=== PATIENT | male | born 1980 | race Caucasian/White ===

== ENCOUNTER 2016-08-15 18:46 | Emergency (ER) | payer MEDICAID ==
[~2016-08-15] VITALS: Ht 172.7 cm; Wt 67.1 kg
[~2016-08-15 18:46] MED LIST: ALPRAZOLAM1 MG ORAL; BACTRIM DS TAB1 EAC1 ORAL; BACTRIM-DS1 EA ORAL; COLACE100 MG ORAL; FLOMAX0.4 MG ORAL; IBUPROFEN600 MG ORAL; IBUPROFEN800 MG ORAL; KEFLEX500 MG ORAL; KEPPRA500 MG ORAL; METHADONE HCL10 MG PO; MIRALAX17 G2 ORAL
[2016-08-15 19:09] VITALS: BP 108/78
[2016-08-15] MEDS ORDERED: ATIVAN2 MG ORAL (19:35)
[2016-08-15] MEDS ORDERED: AUGMENTIN 875-1 EAC1 ORAL (19:35)
[2016-08-15] MEDS ORDERED: KEPPRA500 MG ORAL (19:36)
[2016-08-15 19:43] VITALS: BP 108/78
--- NOTE | 2016-08-15 22:13 | Emergency Room Report ---
History of Present Illness General Chief Complaint: Toothache Source: Patient Present Illness HPI This is a 35-year-old male who has multiple complaints. Patient states he has left-sided tooth pain that began 3 days ago. Patient states that he has infected tooth and that he has a dental appointment scheduled in the next 1 week and needs antibiotics prior to his appointment. Additionally, the patient states that he is in need of a refill for his Keppra 500 mg 1 tab PO twice a day. States that he was just received a new primary care provider and has an upcoming appointment in the next one month and needs refills on his Keppra for epilepsy until he can make it to his next appointment. Patient also states that he needs a refill of his Xanax 2 mg one tab by mouth each bedtime for his epilepsy and anxiety. States that he thinks his medications but good compliance without adverse effects and with good control of his symptoms. Patient denies any SI, HI, VH, AH. Allergies: Coded Allergies: No Known Allergies (Unverified , 03/14/13) Patient History Past Medical History: see triage record Pertinent Family History: none Immunizations: UTD Reviewed Nursing Documentation: PMH: Agreed, PSxH: Agreed Nursing Documentation-PMH Past Medical History: No Stated History Hx Cardiac Problems: No Hx Cancer: No Hx Gastrointestinal Problems: No Hx Neurological Problems: Yes - New onset Seizure Hx Seizures: Yes Review of Systems All Other Systems: negative except mentioned in HPI Physical Exam Vital Signs Date Time Temp Pulse Resp B/P Pulse Ox O2 Delivery O2 Flow Rate FiO2 08/15/16 18:52 98.1 86 18 108/78 98 Room Air Sp02 EP Interpretation: reviewed, normal General Appearance: no apparent distress, alert, GCS 15, non-toxic Head: normocephalic, atraumatic Eyes: bilateral eye PERRL, bilateral eye normal inspection ENT: hearing grossly normal, normal pharynx, no angioedema, normal voice, other - Left lower molar dental caries present with local tenderness to percussion and w/o drainage Neck: full range of motion, supple/symm/no masses Respiratory: chest non-tender, lungs clear, normal breath sounds, speaking full sentences Cardiovascular #1: regular rate, rhythm, no edema Neurologic: alert, oriented x3, responsive, motor strength/tone normal, sensory intact, speech normal Psychiatric: judgement/insight normal, memory normal, mood/affect normal, no suicidal/homicidal ideation, anxious Skin: normal color, no rash, warm/dry, well hydrated Lymphatic: no adenopathy Medical Decision Making PA Attestation is my supervising physician with whom patient management has been discussed with. Diagnostic Impression: Primary Impression: Dental caries Additional Impressions: Epilepsy Qualified Codes: G40.309 - Generalized idiopathic epilepsy and epileptic syndromes, not intractable, without status epilepticus Anxiety ER Course Pt. presents to the ED c/o dental pain Ddx considered but are not limited to dental caries, trauma, dental abscess, perioral abscess Vital signs: are WNL, pt. is afebrile H&PE are most consistent with dental caries ORDERS: none required at this time, the diagnosis is clinical ED INTERVENTIONS: none required at this time. DISCHARGE: At this time pt. is stable for d/c to home. Will provide printed patient care instructions, and any necessary prescriptions. Care plan and follow up instructions have been discussed with the patient prior to discharge. Last Vital Signs Date Time Temp Pulse Resp B/P Pulse Ox O2 Delivery O2 Flow Rate FiO2 08/15/16 19:43 98.1 85 18 108/78 98 Room Air Disposition: HOME, SELF-CARE Condition: Improved Scripts Levetiracetam (Keppra) 500 Mg Tab 500 MG ORAL BID, #60 TAB 0 Refills Prov: MATTEOTAMEEM P.A. 08/15/16 Amoxicillin/Potassium Clav 875-125* (AUGMENTIN 875-125 TABLET*) 1 Each Tablet 1 TAB ORAL TWICE A DAY for 10 Days, #20 TAB Prov: SABRY,TAMEEM P.A. 08/15/16 Lorazepam* (ATIVAN*) 2 Mg Tablet 2 MG ORAL BEDTIME for 7 Days, TAB Prov: SABRY,TAMEEM P.A. 08/15/16 Referrals: DEREK BATRES,REFERRING (PCP) [place] [email or web address] Aug 15, 2016 22:13
[2016-08-15] MEDS ORDERED: XANAX2 MG ORAL (22:48)
== END 2016-08-15 19:43 | disposition home or self-care (01) ==
LOC: EMR 19:13
DX: K02.9 Dental caries, unspecified (principal); G40.909 Epilepsy, unspecified, not intractable, without status epilepticus; Z79.899 Other long term (current) drug therapy
CPT/HCPCS: 99284

== ENCOUNTER 2016-08-28 19:33 | Emergency (ER) | payer MEDICAID ==
[~2016-08-28] VITALS: Ht 172.7 cm; Wt 72.6 kg
[~2016-08-28 19:33] MED LIST changes: +ATIVAN2 MG ORAL; +AUGMENTIN 875-1 EAC1 ORAL; +XANAX2 MG ORAL
[2016-08-28 19:46] VITALS: BP 115/64
[2016-08-28] MEDS ORDERED: BUSPAR10 MG ORAL (20:01)
[2016-08-28] MEDS ORDERED: PROZAC20 MG ORAL (20:01)
[2016-08-28 20:09] VITALS: BP 115/64
--- NOTE | 2016-08-30 13:33 | Emergency Room Report ---
History of Present Illness General Chief Complaint: Medication Refill Source: Patient Present Illness HPI Patient is a 35-year-old male presented for medication refill. The patient had previously been prescribed Xanax 2 mg at [facility] approximately 2 weeks ago. The patient stated that he had run out of his medication and wanted a refill. Patient stated that he had prior history of anxiety and had been taking Xanax. He states he had not been taking the medication for several years previously. Patient was noted to have the prior history of seizure disorder. He states that he had adequate amounts of his seizure medication. He denied any fever. He denied any shortness of breath. The patient said he felt otherwise fine. Allergies: Coded Allergies: No Known Allergies (Unverified , 03/14/13) Patient History Past Medical History: see triage record Reviewed Nursing Documentation: PMH: Agreed, PSxH: Agreed Nursing Documentation-PMH Hx Cardiac Problems: No Hx Cancer: No Hx Gastrointestinal Problems: No History Of Psychiatric Problem: Yes - ANXIETY,PANIC ATTACK Hx Neurological Problems: Yes - New onset Seizure Hx Seizures: Yes Review of Systems All Other Systems: negative except mentioned in HPI Physical Exam Vital Signs Date Time Temp Pulse Resp B/P Pulse Ox O2 Delivery O2 Flow Rate FiO2 08/28/16 19:37 98.2 96 16 115/64 96 Room Air General Appearance: well appearing, no apparent distress, alert, GCS 15 Head: normocephalic, atraumatic ENT: hearing grossly normal, normal voice Neck: full range of motion, supple Respiratory: no respiratory distress, speaking full sentences Cardiovascular #1: normal inspection, normal peripheral pulses, regular rate, rhythm Gastrointestinal: normal inspection Musculoskeletal: no calf tenderness Neurologic: normal inspection, alert, oriented x3, responsive, normal gait Psychiatric: normal inspection, mood/affect normal Skin: no rash Medical Decision Making Diagnostic Impression: Primary Impression: Anxiety ER Course Patient presented for medication refill. The differential diagnosis included was not limited to anxiety, drug-seeking behavior, amphetamine abuse, caffeine overdose, among others. The patient appeared to have a normal psychiatric exam. He denied appear to be anxious or responding to internal stimuli. The patient denied suicidal thoughts. Patient does not appear to require psychiatric testing at this time. The patient stated that he wanted Xanax 2 mg. The patient was advised that I would not prescribe this medication as he should followup with his primary care physician or psychiatrist if he needed refill of scheduled medications. The patient was subsequently combative and abusive. The patient was given a prescription for BuSpar for anxiety. He was advised followup a previously scheduled appointment for a psychiatrist. He was given referral for outpatient mental health. Last Vital Signs Date Time Temp Pulse Resp B/P Pulse Ox O2 Delivery O2 Flow Rate FiO2 08/28/16 20:09 98.2 93 16 115/64 96 Room Air Status: improved Disposition: HOME, SELF-CARE Condition: Stable Scripts Buspirone Hcl* (BUSPAR*) 10 Mg Tablet 10 MG ORAL THREE TIMES A DAY, #15 TAB 0 Refills Prov: Carlos Ospina 08/28/16 Referrals: [facility],REFERRING Patient Instructions: Generalized Anxiety Disorder Carlos Ospina Aug 30, 2016 13:33
== END 2016-08-28 20:09 | disposition home or self-care (01) ==
LOC: EMR 20:00
DX: F41.9 Anxiety disorder, unspecified (principal); Z76.0 Encounter for issue of repeat prescription
CPT/HCPCS: 99283

== ENCOUNTER 2017-10-03 16:12 | Emergency (ER) | payer MEDICAID ==
[~2017-10-03] VITALS: Ht 172.7 cm; Wt 81.6 kg
[~2017-10-03 16:12] MED LIST changes: +BUSPAR10 MG ORAL; +PROZAC20 MG ORAL
[2017-10-03 16:32] VITALS: BP 112/69
--- NOTE | 2017-10-03 17:05 | Emergency Room Report ---
History of Present Illness General Chief Complaint: Medication Refill Source: Patient Present Illness HPI Patient presents with complaints of feeling anxious he reports that he has been trying to get outpatient follow-up Has an appointment coming up in the next one month with a primary clinic Today he had a panic attack is what he reports Reporting that he feels a palpitation sensation he did start to improve Denies any chest pain or shortness of breath denies any back or flank pain Patient also reports being out of his Keppra medication Denies any recent seizures Allergies: Coded Allergies: No Known Allergies (Unverified , 03/14/13) Patient History Past Medical History: see triage record Pertinent Family History: none Reviewed Nursing Documentation: PMH: Agreed; PSxH: Agreed Nursing Documentation-PMH Past Medical History: No History, Except For Hx Cardiac Problems: No Hx Cancer: No Hx Gastrointestinal Problems: No Hx Neurological Problems: Yes - seizure Hx Seizures: Yes Review of Systems All Other Systems: negative except mentioned in HPI Physical Exam Vital Signs Date Time Temp Pulse Resp B/P (MAP) Pulse Ox O2 Delivery O2 Flow Rate FiO2 10/03/17 16:32 98.1 93 16 112/69 94 Room Air 98.1 Sp02 EP Interpretation: reviewed, normal General Appearance: well appearing, no apparent distress Head: normocephalic, atraumatic Eyes: bilateral eye PERRL, bilateral eye EOMI ENT: hearing grossly normal, normal pharynx, TMs + canals normal, uvula midline Neck: full range of motion, supple, no meningismus, no bony tend Respiratory: lungs clear, normal breath sounds, no rhonchi, no respiratory distress, no retraction, no accessory muscle use Cardiovascular #1: normal peripheral pulses, regular rate, rhythm, no edema, no gallop, no JVD, no murmur Gastrointestinal: normal bowel sounds, non tender, soft, no mass, no organomegaly, non-distended, no guarding, no hernia, no pulsatile mass, no rebound Genitourinary: no CVA tenderness Musculoskeletal: normal inspection Neurologic: oriented x3, responsive, projection camera operator III-XII nml as tested, motor strength/ tone normal, sensory intact Psychiatric: mood/affect normal Skin: normal color, no rash, warm/dry, palpation normal Lymphatic: normal inspection, no adenopathy Medical Decision Making Diagnostic Impression: Primary Impression: Palpitations Additional Impression: Seizure ER Course Patient was provided with a medication here Patient attempting appropriate outpatient follow-up Will be provided small dose of medication until he can get set up with primary physician Last Vital Signs Date Time Temp Pulse Resp B/P (MAP) Pulse Ox O2 Delivery O2 Flow Rate FiO2 10/03/17 16:32 98.1 93 16 112/69 94 Room Air 98.1 Status: improved Disposition: HOME, SELF-CARE Condition: Stable Additional Instructions: Patient is provided with the discharge instructions notified to follow up with primary doctor in the next 2-3 days otherwise return to the er with any worsening symptoms. Please note that this report is being documented using Player[employer] technology. This can lead to erroneous entry secondary to incorrect interpretation by the dictating instrument. Wilber Arroyo DO October 03, 2017 17:05
[2017-10-03] MEDS ORDERED: KEPPRA500 M4 ORAL (17:07)
[2017-10-03] MEDS ORDERED: ALPRAZOLAM0.25 MG ORAL (17:07)
[2017-10-03] MEDS ORDERED: ALPRAZolam 0.5mg tab ORAL ONE (17:15)
[2017-10-03 17:20] VITALS: BP 112/69
== END 2017-10-03 17:20 | disposition home or self-care (01) ==
LOC: EMR 16:57
DX: R00.2 Palpitations (principal); Z76.0 Encounter for issue of repeat prescription; G40.909 Epilepsy, unspecified, not intractable, without status epilepticus
CPT/HCPCS: 99283

== ENCOUNTER 2018-05-11 12:00 | Emergency (ER) | payer MEDICAID ==
[~2018-05-11] VITALS: Ht 175.3 cm; Wt 77.1 kg
[~2018-05-11 12:00] MED LIST changes: +ALPRAZOLAM0.25 MG ORAL; +KEPPRA500 M4 ORAL
[2018-05-11 12:10] VITALS: BP 111/76
[2018-05-11] MEDS ORDERED: METHADONE HCL10 MG PO (12:10)
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
[2018-05-11] MEDS ORDERED: Bacitracin Oint UD TOPIC ONE ×3 (12:30→14:15)
[2018-05-11] MEDS ORDERED: Ketorolac 30mg Inj IM ONE (12:30)
[2018-05-11] MEDS ORDERED: Tetanus/Diptheria/Pertussis Vaccine 0.5ml Syr IM ONE (12:30)
--- NOTE | 2018-05-11 12:55 | Diagnostic Imaging Report ---
Indication: Headache Technique: Contiguous 5 mm thick transaxial imaging of the head obtained in a Siemens Sensation [address] scanner. Soft tissue and bone windows generated. Automatic Exposure Control was utilized. Total Dose length Product (DLP): 1435.[address] Dose Index Volume (CTDIvol): 70.38 mGy Comparison: none Findings: The size and configuration of the cortical sulci, basal cisterns, and ventricles are within normal limits for age. There is no mass effect, midline shift, or edema identified. There is no evidence of acute hemorrhage or abnormal intra-axial or extra-axial fluid collections. The bones and soft tissues are unremarkable. There is partial opacification of the maxillary sinus bilaterally. Impression: No mass effect, edema or acute bleed. Sinusitis partially imaged on this study. The CT scanner at [facility] is accredited by the [employer] and the scans are performed using dose optimization techniques as appropriate to a performed exam including Automatic Exposure control.
[2018-05-11] MEDS ORDERED: Lidocaine 1% MPF 10mg/ml 5ml IM ONE (13:45)
[2018-05-11] MEDS ORDERED: BACITRACIN-P28.35 GM TP (14:03)
[2018-05-11] MEDS ORDERED: TYLENOL EXTRA500 MG ORAL (14:03)
[2018-05-11 14:35] VITALS: BP 115/73
== END 2018-05-11 14:36 | disposition home or self-care (01) ==
LOC: EMR 12:29
DX: S09.90XA Unspecified injury of head, initial encounter (principal); Z23 Encounter for immunization; S71.111A Laceration without foreign body, right thigh, initial encounter; Y04.2XXA Assault by strike against or bumped into by another person, initial encounter; Y92.511 Restaurant or cafe as the place of occurrence of the external cause
CPT/HCPCS: 12031; 70450; 90471; 90715; 96372; 99284; J1885; Z7502

== ENCOUNTER 2018-06-11 11:26 | Emergency (ER) | payer MEDICAID ==
[~2018-06-11] VITALS: Ht 175.3 cm; Wt 79.4 kg
[~2018-06-11 11:26] MED LIST changes: +BACITRACIN-P28.35 GM TP; +TYLENOL EXTRA500 MG ORAL
[2018-06-11 11:46] VITALS: BP 113/73
--- NOTE | 2018-06-11 11:46 | NUR ---
ED Nurse Note: pt walked into ED for suture removal, noted small scab [id number] on right lateral thigh w/ mild redness, no drainage at this time, skin intact, noted sutures. Will cont monitor, pt denies pain at this time
--- NOTE | 2018-06-11 12:43 | Emergency Room Report ---
History of Present Illness General Chief Complaint: Wound Recheck/Suture Removal Source: Patient Present Illness HPI 37-year-old male presents to the emergency department for suture removal. Patient sustained a puncture wound to the right lateral thigh 3 weeks ago which had 2 sutures placed. Patient denies erythema, warmth, discharge, tenderness or pain. Patient denies bleeding and states that he is up-to-date with vaccinations. Allergies: Coded Allergies: No Known Allergies (Unverified , 03/14/13) Patient History Past Medical History: see triage record Past Surgical History: none Pertinent Family History: none Immunizations: UTD Reviewed Nursing Documentation: PMH: Agreed; PSxH: Agreed Nursing Documentation-PMH Past Medical History: No Stated History Hx Cardiac Problems: No Hx Cancer: No Hx Gastrointestinal Problems: Yes - constipation Hx Neurological Problems: Yes - seizure Hx Seizures: Yes Review of Systems All Other Systems: negative except mentioned in HPI Physical Exam Vital Signs Date Time Temp Pulse Resp B/P (MAP) Pulse Ox O2 Delivery O2 Flow Rate FiO2 06/11/18 11:38 98.2 85 16 113/73 95 Room Air Sp02 EP Interpretation: reviewed, normal General Appearance: no apparent distress, alert, GCS 15, non-toxic Head: normocephalic, atraumatic Eyes: bilateral eye normal inspection, bilateral eye PERRL ENT: hearing grossly normal, normal voice Neck: full range of motion Respiratory: lungs clear, normal breath sounds, speaking full sentences Cardiovascular #1: regular rate, rhythm Musculoskeletal: back normal, gait/station normal, normal range of motion, non- tender Neurologic: alert, oriented x3, responsive, motor strength/tone normal, sensory intact, speech normal, grossly normal Psychiatric: judgement/insight normal Skin: normal color, no rash, warm/dry, well hydrated, wd healing/no infection noted - 2 sutures , right lateral thigh, thick scab noted. Medical Decision Making PA Attestation Dr. Arroyo is my supervising Physician whom patient management has been discussed with. Diagnostic Impression: Primary Impression: Encounter for removal of sutures ER Course 37-year-old male presents to the emergency department for suture removal. Patient sustained a puncture wound to the right lateral thigh 3 weeks ago which had 2 sutures placed. Patient denies erythema, warmth, discharge, tenderness or pain. Patient denies bleeding and states that he is up-to-date with vaccinations. Ddx considered but are not limited to laceration, tendon injury, cellulitis, dehiscence. Vital signs: are WNL, pt. is afebrile H&PE are most consistent with: healed laceration of the right lateral thigh ORDERS: none required at this time, the diagnosis is clinical ED INTERVENTIONS: - 2 Sutures removed. DISCHARGE: At this time pt. is stable for d/c to home. Will provide printed patient care instructions, and any necessary prescriptions. Care plan and follow up instructions have been discussed with the patient prior to discharge. Last Vital Signs Date Time Temp Pulse Resp B/P (MAP) Pulse Ox O2 Delivery O2 Flow Rate FiO2 06/11/18 11:38 98.2 85 16 113/73 95 Room Air Disposition: HOME, SELF-CARE Condition: Stable Scripts Bacitracin/Polymyxin B Sulfate (BACITRACIN-POLYMYXIN OINTMENT) 28.35 Gm Oint...g. 1 APPLIC TP BID, #28.3 GM Prov: Cuca Lee 06/11/18 Referrals: [facility],REFERRING (PCP) Patient Instructions: Suture Removal, Care After Additional Instructions: Take medications as directed. Follow up with a Primary Care Provider in 3-5 days, even if your symptoms have resolved. --Please review list of primary care clinics, if you do not already have a primary care provider Return sooner to ED if new symptoms occur, or current symptoms become worse. - Please note that this Emergency Department Report was dictated using [email or web address] room technology software, occasionally this can lead to erroneous entry secondary to interpretation by the dictation equipment. Cuca Lee Jun 11, 2018 12:43
[2018-06-11] MEDS ORDERED: BACITRACIN-P28.35 GM TP (12:44)
[2018-06-11] MEDS ORDERED: Bacitracin Oint UD TOPIC ONE (12:45)
[2018-06-11 12:57] VITALS: BP 127/87
--- NOTE | 2018-06-11 12:57 | NUR ---
ED Nurse Note: pt sutures removed by PA and wound care done.
--- NOTE | 2018-06-11 12:58 | NUR ---
ED Nurse Note: pt discharge instruction provided w/ prescription, pt education done via discussion and handout, pt advised to follow up w/ pcp 2-3days, pt verbalized understanding and agrees with plan, pt wrist band removed, pt ambulatory w/ steady gait, vss, all belongings left w/ pt.
== END 2018-06-11 12:58 | disposition home or self-care (01) ==
LOC: EMR 12:12
DX: S71.131D Puncture wound without foreign body, right thigh, subsequent encounter (principal); X58.XXXD Exposure to other specified factors, subsequent encounter; Z48.02 Encounter for removal of sutures
CPT/HCPCS: 99282

== ENCOUNTER 2019-04-05 22:16 | Emergency (ER) | payer MEDICAID ==
[~2019-04-05] VITALS: Ht 172.7 cm; Wt 74.8 kg
[2019-04-05 22:20] VITALS: BP 150/89
--- NOTE | 2019-04-05 22:20 | NUR ---
ED Nurse Note: Pt Brought in by ambulance from home after smoking from a marijuana vape, pt reports anxiety, rapid HR and tingling. VSS except HR 127
[2019-04-05] MEDS ORDERED: LORazepam 1mg tab ORAL ONE ×2 (22:30→23:30)
--- NOTE | 2019-04-05 23:20 | Emergency Room Report ---
History of Present Illness General Chief Complaint: Palpitations Source: Patient Present Illness HPI 38-year-old male presents with palpitations, nausea, sweatiness, after taking a hit of a vape/electronic pen, he states he was doing some THC, he states this never happened before, severity was moderate, constant no chest pain, but he had severe palpitations, patient presents for evaluation, he is very anxious about it. Allergies: Coded Allergies: No Known Allergies (Unverified , 03/14/13) Patient History Past Medical History: see triage record Social History: Reports: smoking, alcohol use, drug use Reviewed Nursing Documentation: PMH: Agreed; PSxH: Agreed Nursing Documentation-PMH Past Medical History: No History, Except For Hx Cardiac Problems: No Hx Cancer: No Hx Gastrointestinal Problems: Yes - constipation Hx Neurological Problems: Yes - seizure Hx Seizures: Yes Review of Systems All Other Systems: negative except mentioned in HPI Physical Exam Vital Signs Date Time Temp Pulse Resp B/P (MAP) Pulse Ox O2 Delivery O2 Flow Rate FiO2 04/05/19 22:17 98.6 152 16 150/89 (109) 98 Room Air Sp02 EP Interpretation: reviewed, normal General Appearance: well appearing, no apparent distress, alert Head: normocephalic, atraumatic Eyes: bilateral eye PERRL, bilateral eye EOMI ENT: uvula midline, moist mucus membranes Neck: supple, thyroid normal, supple/symm/no masses Respiratory: lungs clear, no respiratory distress, no retraction, no accessory muscle use Cardiovascular #1: normal peripheral pulses, no edema, no gallop, no murmur, tachycardia Gastrointestinal: non tender, soft, no guarding, no rebound Musculoskeletal: normal inspection Neurologic: alert, oriented x3 Psychiatric: anxious Skin: no rash, warm/dry Medical Decision Making Diagnostic Impression: Primary Impression: Palpitations ER Course 38-year-old male presents with palpitations after utilizing a vape, counseled patient not to smoke, EKG shows sinus tachycardia, tachycardia slowly improved with Ativan, patient coming down, chest x-ray negative, disposition home with return precautions EKG Diagnostic Results EKG Time: 22:32 EP Interpretation: Sinus tachycardia, rate 115, QTc 442, no acute ST elevations , normal axis Chest X-Ray Diagnostic Results Chest X-Ray Diagnostic Results : Chest X-Ray Ordered: Yes # of Views/Limited/Complete: 1 View Indication: Other - Palpitations EP Interpretation: Yes Interpretation: no consolidation, no effusion, no pneumothorax, no acute cardiopulmonary disease Impression: No acute disease Electronically Signed by: Flynn Jeffries MD Last Vital Signs Date Time Temp Pulse Resp B/P (MAP) Pulse Ox O2 Delivery O2 Flow Rate FiO2 04/05/19 22:20 98.6 127 16 150/89 98 Room Air Disposition: HOME, SELF-CARE Condition: Stable Referrals: [facility]. [facility] Patient Instructions: Palpitations Additional Instructions: The patient was provided with discharge instructions, notified to follow-up with a primary care doctor and or specialist in the next 24-48 hours, and to return to the ED if they have worsening of their symptoms. Please note that this report is being documented using [employer] technology. This can lead to erroneous entry secondary to incorrect interpretation by the dictating instrument. Flynn Jeffries MD Apr 05, 2019 23:20
[2019-04-05 23:25] VITALS: BP 150/89
--- NOTE | 2019-04-05 23:25 | NUR ---
ER DISCHARGE NOTE: Patient is cleared to be discharged per ERMD, pt is aox4, on room air, with stable vital signs. pt was given dc and prescription instructions, pt was able to verbalize understanding, pt id band removed. pt is able to ambulate with steady gait. pt took all belongings.
--- NOTE | 2019-04-06 12:05 | Diagnostic Imaging Report ---
Indication: Cough Technique: One view of the chest Comparison: 08/13/2015 Findings: Lungs and pleural spaces are clear. Heart size is normal. No significant change Impression: No acute process
== END 2019-04-05 23:25 | disposition home or self-care (01) ==
LOC: EDUNIT# 22:16 → EDBD 22:16 → EMR 22:50
DX: R00.2 Palpitations (principal); F17.200 Nicotine dependence, unspecified, uncomplicated; F12.10 Cannabis abuse, uncomplicated
CPT/HCPCS: 71045; 93005; Z7502; 99283

== ENCOUNTER 2019-11-10 07:48 | Emergency (ER) | payer MEDICAID ==
[~2019-11-10] VITALS: Ht 172.7 cm; Wt 81.6 kg
[2019-11-10 08:00] VITALS: BP 121/79
--- NOTE | 2019-11-10 08:03 | NUR ---
ED Nurse Note: Patient was brought in by ambulance from [facility] due to abdominal pain, N/V since last night; reports no recent use of substance abuse. Patient presented lethargic, AAO x4, VSS at this time, skin is warm to touch.
--- NOTE | 2019-11-10 08:04 | Emergency Room Report ---
History of Present Illness General Chief Complaint: Abdominal Pain Source: Patient Present Illness HPI Disclaimer: Please note that this report is being documented using [employer] technology. This can lead to erroneous entry secondary to incorrect interpretation by the dictating instrument. HPI: 39-year-old male history of drug use, on methadone, presented from a methadone clinic for nausea and vomiting. He reports epigastric pain with nausea and vomiting. Denies diarrhea. Denies fever. Patient is a very poor historian on arrival. No urinary complaints. Patient denies any recent drug use, but does state that he uses crack cocaine occasionally. PMH: Drug use PSH: Reviewed Social Hx: Takes methadone, uses crack cocaine, marijuana, alcohol, smokes cigarettes Allergies: Coded Allergies: No Known Allergies (Unverified , 03/14/13) COVID-19 Screening Contact w/high risk pt: No Recent Travel to affected area: No Experienced COVID-19 symptoms?: No COVID-19 Testing performed UI [employer] DEVELOPER: No Patient History Reviewed Nursing Documentation: PMH: Agreed; PSxH: Agreed Nursing Documentation-PMH Past Medical History: No History, Except For Hx Cardiac Problems: No - substance abuse Hx Cancer: No Hx Gastrointestinal Problems: Yes Hx Neurological Problems: Yes - seizure Hx Seizures: Yes Review of Systems All Other Systems: negative except mentioned in HPI Physical Exam Vital Signs Date Time Temp Pulse Resp B/P (MAP) Pulse Ox O2 Delivery O2 Flow Rate FiO2 11/10/19 07:50 97.3 79 14 121/79 (93) 99 Room Air Sp02 EP Interpretation: reviewed, normal General Appearance: well appearing, no apparent distress Head: normocephalic, atraumatic Eyes: bilateral eye PERRL, bilateral eye EOMI ENT: hearing grossly normal, moist mucus membranes Neck: full range of motion, supple Respiratory: lungs clear, normal breath sounds, no rhonchi, no respiratory distress, no retraction, no wheezing Cardiovascular #1: normal peripheral pulses, regular rate, rhythm, no murmur Gastrointestinal: non tender, soft, non-distended, no guarding Neurologic: alert, oriented x3, no focal defects Skin: normal color, warm/dry Medical Decision Making Diagnostic Impression: Primary Impression: Nausea & vomiting Additional Impression: Polysubstance abuse ER Course MDM: Differential included but not limited to gastritis, pancreatitis, substance abuse, gastroenteritis Clinical course-basic laboratory studies were sent.. CT scan ordered, IV fluids and Zofran given. On reassessment patient did appear improved in no acute distress. CT scan did not demonstrate any acute pathology. Laboratory studies Demonstrated mild leukocytosis. Urine drug screen positive for cocaine and marijuana. Labs - Laboratory Tests Test 11/10/19 08:10 11/10/19 12:35 White Blood Count 11.4 K/UL (4.8-10.8) H Red Blood Count 5.34 M/UL (4.70-6.10) Hemoglobin 15.3 G/DL (14.2-18.0) Hematocrit 42.7 % (42.0-52.0) Mean Corpuscular Volume 80 FL (80-99) Mean Corpuscular Hemoglobin 28.7 PG (27.0-31.0) Mean Corpuscular Hemoglobin Concent 35.8 G/DL (32.0-36.0) Red Cell Distribution Width 11.1 % (11.6-14.8) L Platelet Count 317 K/UL (150-450) Mean Platelet Volume 5.9 FL (6.5-10.1) L Neutrophils (%) (Auto) 72.1 % (45.0-75.0) Lymphocytes (%) (Auto) 19.1 % (20.0-45.0) L Monocytes (%) (Auto) 5.3 % (1.0-10.0) Eosinophils (%) (Auto) 2.7 % (0.0-3.0) Basophils (%) (Auto) 0.9 % (0.0-2.0) Sodium Level 142 MMOL/L (136-145) Potassium Level 3.8 MMOL/L (3.5-5.1) Chloride Level 103 MMOL/L (98-107) Carbon Dioxide Level 27 MMOL/L (21-32) Anion Gap 12 mmol/L (5-15) Blood Urea Nitrogen 19 mg/dL (7-18) H Creatinine 1.0 MG/DL (0.55-1.30) Estimated Glomerular Filtration Rate > 60 mL/min (>60) Glucose Level 111 MG/DL (74-106) H Calcium Level 9.9 MG/DL (8.5-10.1) Total Bilirubin 0.7 MG/DL (0.2-1.0) Aspartate Amino Transferase (AST) 31 U/L (15-37) Alanine Aminotransferase (ALT) 41 U/L (12-78) Alkaline Phosphatase 67 U/L (46-116) Total Protein 8.3 G/DL (6.4-8.2) H Albumin 5.0 G/DL (3.4-5.0) Globulin 3.3 g/dL Albumin/Globulin Ratio 1.5 (1.0-2.7) Lipase 194 U/L (73-393) Urine Color Yellow Urine Appearance Clear Urine pH 6 (4.5-8.0) Urine Specific [place] 1.025 (1.005-1.035) Urine Protein 2+ (NEGATIVE) H Urine Glucose (UA) Negative (NEGATIVE) Urine Ketones 4+ (NEGATIVE) H Urine Blood Negative (NEGATIVE) Urine Nitrite Negative (NEGATIVE) Urine Bilirubin Negative (NEGATIVE) Urine Urobilinogen 4 MG/DL (0.0-1.0) H Urine Leukocyte Esterase 1+ (NEGATIVE) H Urine RBC 0 /HPF (0 - 0) Urine WBC 0-2 /HPF (0 - 0) Urine Squamous Epithelial Cells Occasional /LPF Urine Amorphous Sediment Moderate /LPF (NONE) H Urine Bacteria Occasional /HPF (NONE) Urine Mucus Moderate /LPF (NONE/OCC) H Urine Opiates Screen Negative (NEGATIVE) Urine Barbiturates Screen Negative (NEGATIVE) Phencyclidine (PCP) Screen Negative (NEGATIVE) Urine Amphetamines Screen Negative (NEGATIVE) Urine Benzodiazepines Screen Positive (NEGATIVE) H Urine Cocaine Screen Positive (NEGATIVE) H Urine Marijuana (THC) Screen Negative (NEGATIVE) On reevaluation: Patient appears improved, no acute distress, stable vital signs , Plan-discharge home with follow-up PMD, Zofran as needed, and instructions to avoid further crack cocaine use. Last Vital Signs Date Time Temp Pulse Resp B/P (MAP) Pulse Ox O2 Delivery O2 Flow Rate FiO2 11/10/19 07:50 97.3 79 14 121/79 (93) 99 Room Air Disposition: HOME, SELF-CARE Condition: Improved Scripts Ondansetron (Zofran) 4 Mg Tablet 4 MG ORAL Q6H PRN for Nausea & Vomiting, #14 TAB Prov: Yoan Jarrett M.D. 11/10/19 Yoan Jarrett M.D. Nov 10, 2019 08:04
--- NOTE | 2019-11-10 08:15 | NUR ---
ED Nurse Note: IV access established on left wrist 22ga, blood collected sent down
[2019-11-10 08:21] LABS: BASOPHILS % (AUTO) 0.9 % (0.0-2.0); EOSINOPHILS % (AUTO) 2.7 % (0.0-3.0); HEMATOCRIT 42.7 % (42.0-52.0); HEMOGLOBIN 15.3 G/DL (14.2-18.0); LYMPHOCYTES % (AUTO) 19.1 % (20.0-45.0); MEAN CORPUSCULAR VOLUME 80 FL (80-99); MONOCYTES % (AUTO) 5.3 % (1.0-10.0); NEUTROPHILS % (AUTO) 72.1 % (45.0-75.0); PLATELET COUNT 317 K/UL (150-450); RED BLOOD COUNT 5.34 M/UL (4.70-6.10); RED CELL DISTRIBUTION WIDTH 11.1 % (11.6-14.8); WHITE BLOOD COUNT 11.4 K/UL (4.8-10.8)
[2019-11-10 08:38] LABS: ANION GAP 12 mmol/L (5-15); BLOOD UREA NITROGEN 19 mg/dL (7-18); CALCIUM 9.9 MG/DL (8.5-10.1); CARBON DIOXIDE 27 MMOL/L (21-32); CHLORIDE 103 MMOL/L (98-107); POTASSIUM 3.8 MMOL/L (3.5-5.1); SODIUM 142 MMOL/L (136-145)
[2019-11-10 08:44] LABS: ALANINE AMINOTRANSFERASE 41 U/L (12-78); ALBUMIN/GLOBULIN RATIO 1.5 (1.0-2.7); ALKALINE PHOSPHATASE 67 U/L (46-116); ASPARTATE AMINO TRANSFERASE 31 U/L (15-37); BILIRUBIN,TOTAL 0.7 MG/DL (0.2-1.0)
--- NOTE | 2019-11-10 12:02 | Diagnostic Imaging Report ---
EXAM: CT CT Abdomen Pelvis WO Contrast INDICATION: Abdominal pain. Nausea vomiting. COMPARISON: 03/14/2013 TECHNIQUE: Axial images were obtained through the abdomen pelvis without intravenous contrast. Sagittal and coronal reformats are generated. All CT scans at this facility are performed using dose modulation techniques as appropriate to a performed exam including the following: automated exposure control with adjustment of the mA and/or kV according to patient size. RADIATION DOSE: CTDIvol: 3.5 mGy DLP: 185.5 mGy-cm Dose information generated by the CT scanner is available in PACS. FINDINGS: There are several small subpleural nodules noted in the lung bases. In the left lung bases, there are 2 to 3 mm small nodule seen in the lateral left lower lobe on images 18 and 16. Another tiny subpleural nodule posterior right lung base on image 5 approximately 2 mm. The liver and spleen are homogeneous. Gallbladder is without sludge or stone and there is no wall thickening. The pancreas is unremarkable. Adrenals are normal in morphology. Small intrarenal stones noted lower pole right kidney. No hydronephrosis seen bilaterally. Small bowel loops are nondistended. The colon is also nondistended with average amount of stool. The appendix is normal. There is no free fluid or free air. No pathologic adenopathy demonstrated. Urinary bladder appears unremarkable. There is no suspicious superficial soft tissue or osseous abnormality. IMPRESSION: RIGHT INTRARENAL STONE. NO HYDRONEPHROSIS. OTHERWISE NO SIGN OF ACUTE DISEASE IN THE ABDOMEN AND PELVIS. SMALL NONCALCIFIED SUBPLEURAL NODULES IN THE LUNG BASES. THESE MAY BE POSTINFLAMMATORY IN NATURE. BY MODIFIED [employer] CRITERIA, IF THE PATIENT HAS NO RISK FACTORS, NO ADDITIONAL FOLLOW-UP IS WARRANTED. IF THE PATIENT HAS HIGH RISK FACTORS OR HISTORY OF MALIGNANCY, CONSIDER SHORT-TERM CT CHEST FOLLOW-UP.
[2019-11-10] MEDS ORDERED: ZOFRAN4 M1 ORAL (12:08)
[2019-11-10 12:57] LABS: APPEARANCE,URINE CLEAR; BILIRUBIN, URINE NEGATIVE (NEGATIVE); GLUCOSE, URINE (UA) NEGATIVE (NEGATIVE); KETONES,URINE 4+ (NEGATIVE); LEUKOCYTE ESTERASE ,URINE 1+ (NEGATIVE); NITRITE,URINE NEGATIVE (NEGATIVE); PH,URINE 6 (4.5-8.0); PROTEIN,URINE 2+ (NEGATIVE); UROBILINOGEN,URINE 4 MG/DL (0.0-1.0)
[2019-11-10 12:59] LABS: COLOR,URINE YELLOW
[2019-11-10 14:13] VITALS: BP 118/84
--- NOTE | 2019-11-10 14:13 | NUR ---
ER DISCHARGE NOTE: Report received from SONG Pinzon. Patient is cleared to be discharged per ERMD, pt is aox4, on room air, with stable vital signs. pt was given dc and prescription instructions, pt was able to verbalize understanding, pt id band and iv site removed without complications. pt is able to ambulate with steady gait. pt took all belongings.
== END 2019-11-10 14:09 | disposition home or self-care (01) ==
LOC: EDBD 07:48 → EMR 08:00
DX: R11.2 Nausea with vomiting, unspecified (principal); F19.10 Other psychoactive substance abuse, uncomplicated; G40.909 Epilepsy, unspecified, not intractable, without status epilepticus; F17.210 Nicotine dependence, cigarettes, uncomplicated; D72.829 Elevated white blood cell count, unspecified
CPT/HCPCS: 36415; 74176; 80053; 80307; 81003; 83690; 85025; 96361; 96374; J2405; J7030; Z7502; 99284